=== PATIENT | male | born 1995 | race African-American/Black ===

== ENCOUNTER 2022-01-09 09:07 | Emergency (ER) | payer MEDICAID, OTHER ==
[~2022-01-09] VITALS: Ht 170.2 cm; Wt 59.0 kg
[2022-01-09 09:18] VITALS: BP 120/84
[2022-01-09] MEDS ORDERED: PODO3.5G TP (10:07)
== END 2022-01-09 10:28 | disposition home or self-care (01) ==
LOC: ER 09:07
DX: A63.0 Anogenital (venereal) warts (principal)
CPT/HCPCS: 99281

== ENCOUNTER 2022-05-10 09:53 | Emergency (ER) | payer OTHER ==
[~2022-05-10] VITALS: Ht 167.6 cm; Wt 64.0 kg
[~2022-05-10 09:53] MED LIST: PODO3.5G TP
[2022-05-10] MEDS ORDERED: TETANUS, DIPHTHERIA, PERTUSSIS VAC/PF 0.5ML (>10YR OLD) IM ONE (10:45)
[2022-05-10] MEDS ORDERED: IBUPROFEN 600MG TABLET PO ONE (10:45)
[2022-05-10] MEDS ORDERED: LIDOCAINE HCL/PF 1% 10 MG/ML 5ML VIAL INFIL ONE (10:45)
[2022-05-10 11:01] VITALS: BP 134/78
[2022-05-10] MEDS ORDERED: BO1 TP (11:50)
[2022-05-10] MEDS ORDERED: IBUP-2029 MT (11:50)
== END 2022-05-10 11:57 | disposition home or self-care (01) ==
LOC: ER 09:53
DX: S01.111A Laceration without foreign body of right eyelid and periocular area, initial encounter (principal); W45.8XXA Other foreign body or object entering through skin, initial encounter; Y93.89 Activity, other specified; Y92.89 Other specified places as the place of occurrence of the external cause; Y99.8 Other external cause status
CPT/HCPCS: 12011; 90471; 90715; 99283; J3490